=== PATIENT | female | born 1995 | race Caucasian/White ===

== ENCOUNTER 2019-09-29 20:35 | Outpatient (REF) | payer OTHER, SELFPAY | END 2019-09-29 20:55 | LOC: LBN 20:35 | PROVIDERS: Visit Provider Obstetrics & Gynecology | DX: R30.0 Dysuria (principal) | CPT/HCPCS: 87077; 87086; 87186 ==

== ENCOUNTER 2022-12-02 16:31 | Outpatient (REF) | payer OTHER, SELFPAY ==
--- NOTE | 2022-12-02 15:30 | PAPFT_PTH ---
PATIENT: Jess Negron LOC: [facility] U#:[id number] AGE/SX: 27/F ROOM: RE12/02/[address]: Carol Rueda : 1995 BED: DIS: 12/02/2022 SPEC #: [id number] RECD: 12/02/22 17:32 STATUS: ESAU REAmber #: [id number] CÉSAR: 12/02/22 15:[address]: Carol Rueda DEPT: [facility] Cytology RECD BY: Sita Koch ENTERED: 12/02/22 17:32 SP TYPE: PAPFT OTHR DR: Nadya Villalpando Tissues: 1 - CX/ENDOCX FOR PAP SMEARS Procedures: PAP THIN PREP/UVM Screening HPV DNA PROBE Comments: [id number]
== END 2022-12-02 16:32 | disposition home or self-care (01) ==
LOC: LBN 16:31
PROVIDERS: Visit Provider Obstetrics & Gynecology Gynecology
DX: Z12.4 Encounter for screening for malignant neoplasm of cervix (principal); Z11.51 Encounter for screening for human papillomavirus (HPV); R87.610 Atypical squamous cells of undetermined significance on cytologic smear of cervix (ASC-US)
CPT/HCPCS: 88142; 87624

== ENCOUNTER 2023-04-14 10:21 | Emergency (ER) | payer SELFPAY ==
[2023-04-14 10:33] VITALS: BP 124/78; PULSE 74; RESP 16; TEMP 37.2; O2SAT 100
--- NOTE | 2023-04-14 11:40 | ED.GENADUL_ITS ---
Discharge Plan Disposition Patient Disposition: Home Discharge Details Chief Complaint: Nausea/Vomit/Diar Clinical Impression: Diarrhea Primary Care Provider: None,None ED Provider: Pete Tobias Home Meds and New Rx's Prescriptions: No Action No Known Home Meds Discharge Instructions Instructions: Acute Diarrhea (ED) Additional Instructions: Please be sure to maintain adequate hydration. Any volume of fluid lost in bowel movements need to be replaced orally with electrolyte balance solution as discussed. Please contact your primary care physician to arrange follow-up. Return to the ER immediately for any worsening or new concerning symptoms. Referrals: Carol Rueda MD [ [facility] STAFF PHYSICIAN] - Medical Decision Making 27-year-old female here with loose stool over the past 4 days. Multiple family members/friends sick with similar GI symptoms. Abdominal exam is benign. Patient tolerating oral intake. She seems to be maintaining adequate hydration despite fluid losses. I recommended continued oral rehydration. I will send fecal pathogens and C. difficile studies. HPI General Mode of arrival: ambulatory . Date/Time Provider Initiated Documentation: 04/14/23 11:18 . Limitations to Documentation: no limitations . Information obtained by: patient . HPI Narrative: 27-year-old female here with chief complaint of diarrhea. Patient has had loose stool for the past 4 days. Symptoms are persistent. She does note some nausea and vomiting that has since resolved. No abdominal pain. She does have some intermittent bloating sensation. Patient notes multiple family members and friends sick with similar GI symptoms over the past week. Patient has not consumed any undercooked foods or untreated water sources. No recent travel. Patient states she has no nausea at this time and is able to keep fluid down. Related Data Home Medications Medication Instructions Recorded Confirmed Unknown [No Known Home Meds] 12/29/22 04/14/23 Allergies Allergy/AdvReac Type Severity Reaction Status Date / Time No Known Drug Allergies Allergy Unverified 04/14/23 10:38 General Stated Complaint: Nausea/Vomit/Diar LAN: 3 Review of Systems All systems reviewed & are unremarkable except as noted in HPI and below PFSH All Active Problems (Updated 04/14/23 @ 11:44 by Pete Tobias MD) Diarrhea (Acute) Acne (Acute 04/18/14) Dysuria (Acute) Medical History (Updated 04/14/23 @ 11:44 by Pete Tobias MD) Abnormal Pap smear of cervix 01/2011 LSGIL can't exclude HGSIL (15yo) 07/2011 HGSIL 08/2011 CIN1 on colpo bx 11/2012 HGSIL 2/03/12 CIN2 colpo bx 08/2013 HGSIL. 12/2013 colpo bx CIN2. 01/2014 LEEP - CIN2 2014. Pap-normal. 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 Contraception 02/2014 Nexplanon insertion. Was told by provider Nexplanon use forl 4 years is okay. Contraceptive management (03/15/14) 11/2022. Nexplanon removed. Surgical History (Updated 12/02/22 @ 16:44 by Carol Rueda MD) H/O LEEP LEEP. CIN2. 2019. In [place]. Family History Father , Metastatic lung canc Neoplasm Social History (Updated 12/02/22 @ 17:34 by Carol Rueda MD) Smoking/Tobacco Use Status: Current-Occasional Tobacco Type: e-cigarettes Smoking risk assessment performed?: Yes Alcohol Intake: never Drug use: Daily Substance use type: marijuana Household members: other Details: lives alone. Yao will move to [facility] in a year. Housing: other Details: Yao is Nepalese. 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 Sexually active: Yes Do you feel safe in your relationship?: Yes Female Reproductive History Menstrual Age of Menarche: 8 Duration of menses: 3-5 days control method: implanted (Nexplanon - .) History History 0 Para Hx # Term Pregnancies Multiple births Hx # Pregnancies Ectopic pregnancies AB induced Hx Number of Living Children AB spontaneous Exam Const General: cooperative and no acute distress HENMT Head: normocephalic Eyes Conjunctivae: normal conjunctivae Sclera: normal sclerae Resp Auscultation: clear to auscultation bilaterally, no rales, no rhonchi and no wheezes Cardio Rate: regular rate and not tachycardic Rhythm: regular rhythm GI Palpation: soft, not firm, no guarding, no masses, not rigid and nontender Neuro General: patient alert, patient awake and tone normal Psych Appearance: grossly normal Mental Status: mental status grossly normal Speech and Movement: speech and movement normal Course Vital Signs Vital signs: Vital Signs Temperature 37.2 C 04/14/23 10:33 Pulse 74 04/14/23 10:33 Respiratory Rate 16 04/14/23 10:33 Blood Pressure 124/78 04/14/23 10:33 Pulse Oximetry 100 04/14/23 10:33 Temperature 37.2 C 04/14/23 10:33 Temperature Source Oral 04/14/23 10:33 Pulse 74 04/14/23 10:33 Respiratory Rate 16 04/14/23 10:33 Respiratory Effort Normal 04/14/23 10:37 Blood Pressure 124/78 04/14/23 10:33 Blood Pressure Position Sitting 04/14/23 10:33 Pulse Oximetry 100 04/14/23 10:33 Oxygen Delivery Method Room Air 04/14/23 10:33 Oxygen Flow Rate 0 04/14/23 10:33 Pain Level 5 04/14/23 10:33 PAWSS Have you Been Recently Intoxicated or Drunk Within the Last 30 days?: No Have you Ever Experienced Previous Episodes of Alcohol Withdrawal?: No Have you ever Experienced Withdrawal Seizures?: No Have you ever Experienced Delirium Tremens(DT)s?: No Have you ever undergone Alcohol Rehabilitation Treatment (i.e, inpt ot outpatient treatment programs)?: No Have you ever Experienced Blackouts?: No Have you ever Combined Alcohol with other Downers within the last 90 days?: No Have you ever Combined Alcohol with any other Substance of Abuse during the last 90 days?: No Result: 0
[2023-04-14 13:00] LABS: C Diff PCR Negative (Negative)
[2023-04-15 13:10] LABS: Campylobacter PCR Negative (Negative); Salmonella PCR Negative (Negative); Shiga Toxin PCR Negative (Negative); Shigella/Enteroinvasive Ecoli Negative (Negative)
--- NOTE | 2023-04-16 18:11 | NUR.NOTE ---
Nursing Note: PT CALLED FOR TEST RESULTS. IN CHART TO LOOK UP. KEENA OK'D RELAY OF NEGATIVE RESULTS OF STOOL SAMPLE.
== END 2023-04-14 12:00 | disposition home or self-care (01) ==
PROVIDERS: Emergency Provider Student in an Organized Health Care Education/Training Program
DX: R19.7 Diarrhea, unspecified (principal); R11.2 Nausea with vomiting, unspecified
CPT/HCPCS: 87493; 87505; 99283

== ENCOUNTER 2023-05-08 12:36 | Outpatient (REF) | payer SELFPAY ==
[2023-05-10 12:59] LABS: Chlamydia Result Negative (Negative); GC Result Negative (Negative)
== END 2023-05-08 12:37 | disposition home or self-care (01) ==
LOC: LBN 12:36
PROVIDERS: Visit Provider Advanced Practice Midwife
DX: R30.0 Dysuria; Z72.51 High risk heterosexual behavior; Z11.3 Encounter for screening for infections with a predominantly sexual mode of transmission
CPT/HCPCS: 87491; 87591; 87086

== ENCOUNTER 2023-06-06 09:31 | Emergency (ER) | payer SELFPAY ==
[2023-06-06 09:47] VITALS: BP 110/67; PULSE 58; RESP 16; TEMP 37.1; O2SAT 100
--- NOTE | 2023-06-06 10:08 | ED.GENADUL_ITS ---
Discharge Plan Disposition Patient Disposition: Home Discharge Details Clinical Impression: Exudative pharyngitis, Vaginal candidosis Primary Care Provider: None,None ED Provider: Melissa Holder Home Meds and New Rx's Prescriptions: New fluconazole [Diflucan] 150 mg tablet 150 mg PO ONCE Qty: 1 0RF Rx Instructions: as a single dose, in 1 week if symptoms continue penicillin V potassium 500 mg tablet 500 mg PO TID Qty: 30 0RF Rx Instructions: Take if your throat culture is positive. Discharge Instructions Instructions: Pharyngitis (ED), Yeast Infection (ED) Additional Instructions: Call Dr. Rueda on Thursday the for the results of the throat culture and for a follow-up appointment and recheck. If your throat culture is positive fill the prescription for penicillin and take for the full 10 days. We recommend that you buy a probiotic to take while on antibiotics. If your throat culture is negative and your symptoms continue I recommend that you get a test for mononucleosis from Dr. Rueda. If those symptoms of vaginal yeast infection continue repeat the Diflucan 1 week from today. Return to the emergency department for any new or worrisome symptoms such as difficulty breathing, talking or swallowing or any new or worrisome symptoms. Discharge Data Discharge Date/Time-TO BE ENTERED AT DEPARTURE: 06/06/23 11:33 Discharge Physician: Melissa Holder Medical Decision Making This is a 27-year-old female who was treated with ciprofloxacin for a UTI and developed vaginal candidiasis which she treated with an [id number] Monistat. She states that she used 1 day treatment and the symptoms have returned. Today she presents with a sore throat and has tonsillar exudates but I cannot appreciate any white plaques on the tongue or buccal mucosa. Her airway is patent and she has normal phonation. The patient's rapid strep is negative. I have sent a 48-hour strep. The patient's primary care provider is Dr. Rueda from [facility]. My plan is to prescribe penicillin 500 3 times daily for 10 days the patient will await the results of the regular throat culture and will not take the penicillin if it is negative. I have recommended that the patient get a Monospot test if her symptoms continue and her throat culture is negative. I have explained that a Monospot usually takes several weeks to turn positive and I would not recommend obtaining that test unless the symptoms continue in association with a negative throat culture. I will write for Diflucan here and a repeat Diflucan in 1 week which should treat her vaginal candidiasis and if this is atypical thrush it would treat that as well. Lab Data Lab results reviewed: Yes I reviewed the patient's lab results. Lab results narrative: Rapid strep negative HPI General Date/Time Provider Initiated Documentation: 06/06/23 10:08 . HPI Narrative: Patient is a 27-year-old female recently treated with an antibiotic that she believes was ciprofloxacin for UTI. She was seen and treated in [place], and she developed a yeast infection which was treated with [id number] antifungals. Today she woke up with a sore throat. She denies any sick contacts. She has no history of strep. She denies any difficulty breathing talking or swallowing. She denies any change in her voice. She denies any aggravating or alleviating factors. Related Data Home Medications Medication Instructions Recorded Confirmed fluconazole 150 mg tablet 150 mg PO ONCE #1 tab 06/06/23 (Diflucan) penicillin V potassium 500 mg 500 mg PO TID #30 tabs 06/06/23 tablet Previous Rx's Medication Instructions Recorded fluconazole 150 mg tablet 150 mg PO ONCE #1 tab 06/06/23 (Diflucan) penicillin V potassium 500 mg 500 mg PO TID #30 tabs 06/06/23 tablet Allergies Allergy/AdvReac Type Severity Reaction Status Date / Time propylene glycol Allergy Intermediate Hives Verified 06/06/23 09:51 General Stated Complaint: Sorethroat LAN: 4 Review of Systems Narrative: see hpi Constitutional Constitutional: Denies fever(s), Denies headache(s) and Denies lethargy ENT Ears, Nose, Mouth, and Throat: Denies dysphagia, Denies otalgia, Denies headache(s) and Denies lip swelling Cardiovascular Cardiovascular: Denies dyspnea Respiratory Respiratory: Denies cough and Denies dyspnea Gastrointestinal Gastrointestinal: Denies dysphagia Neurologic Neurologic: Denies headache(s) Allergic/Immunologic Allergic/Immunologic: Denies lip swelling PFSH All Active Problems (Updated 06/06/23 @ 11:14 by Melissa Holder MD) Exudative pharyngitis (Acute) Vaginal candidosis (Acute) Unprotected sexual intercourse (Acute) Acne (Acute 04/18/14) Dysuria (Acute) Medical History Abnormal Pap smear of cervix 01/2011 LSGIL can't exclude HGSIL (15yo) 07/2011 HGSIL 08/2011 CIN1 on colpo bx 11/2012 HGSIL /03/12 CIN2 colpo bx 08/2013 HGSIL. 12/2013 colpo bx CIN2. 01/2014 LEEP - CIN2 2014. Pap-normal. 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 Contraception 02/2014 Nexplanon insertion. Was told by provider Nexplanon use forl 4 years is okay. Contraceptive management (03/15/14) 11/2022. Nexplanon removed. Surgical History H/O LEEP LEEP. CIN2. 2019. In [place]. Family History Father , Metastatic lung canc Neoplasm Social History Smoking/Tobacco Use Status: Current-Occasional Tobacco Type: e-cigarettes Smoking risk assessment performed?: Yes Alcohol Intake: current Alcohol Intake frequency: holidays/special occasions only Drug use: Daily Substance use type: marijuana Household members: other Details: lives alone. Fiance will move to [facility] in a year. 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 Sexually active: Yes Do you feel safe at home: Yes Do you feel safe in your relationship?: Yes Female Reproductive History Menstrual Age of Menarche: 8 Duration of menses: 3-5 days control method: implanted (Nexplanon - .) History History 0 Para Hx # Term Pregnancies Multiple births Hx # Pregnancies Ectopic pregnancies AB induced Hx Number of Living Children AB spontaneous Exam Const General: cooperative, healthy appearing, comfortable, no acute distress, well developed, well groomed and well hydrated Nutritional Appearance: average body habitus and well nourished Orientation: alert, awake and oriented x3 [facility] Head: normal to inspection, normocephalic and atraumatic Ears: hearing grossly normal bilaterally and external ears normal General nose exam: external nose normal and no nasal discharge Face and sinus: normal facial exam Mouth: moist mucous membranes and other (Normal phonation) Throat: uvula midline, posterior oropharynx abnormal exudates, uvula not displaced and other (There are bilateral symmetric tonsillar exudates. No buccal cellulitis) Other: Airway is patent Eyes General: appearance normal, both eyes and all related structures Pupils: PERRL EOM: EOM intact bilaterally Neck Neck: normal visual inspection, full ROM, no lymphadenopathy, no meningeal signs, trachea midline and other Chest Chest: normal inspection of the chest Resp Effort & Inspection: normal respiratory effort and able to speak in complete sentences Auscultation: clear to auscultation bilaterally and abnormal I/E ratio Cardio Rate: regular rate Rhythm: regular rhythm Heart Sounds: S1 normal and S2 normal GI Inspection: normal to inspection and non-distended Palpation: soft and nontender Back/Spine/Pelvis Back: no CVA tenderness Cervical Spine: normal cervical lordosis Thoracic/Lumbar Spine: thoracic and lumbar spine normal to inspection Skin General skin exam: no rashes or lesions noted, turgor normal, no petechiae and no purpura Rashes: no rashes Trauma: no lacerations or abrasions Neuro General: patient alert, patient awake, patient oriented x3, no meningeal signs, no focal motor deficits and CN's II-XI intact bilaterally Cranial Nerves: CN's II-XI intact bilaterally Cognition: normal cognition Speech: speech normal Gait: normal gait Motor: muscle tone normal throughout Sensory Exam: no sensory deficits noted Extrem General: normal to inspection, full ROM, capillary refill normal and normal exam except as noted Psych Appearance: grossly normal Affect: normal affect Attitude: cooperative Insight: insight good Judgment: judgment good Other: The patient appears to have capacity make medical decisions. Course Vital Signs Vital signs: Vital Signs Temperature 37.1 C 06/06/23 09:47 Pulse 58 L 06/06/23 09:47 Respiratory Rate 16 06/06/23 09:47 Blood Pressure 110/67 06/06/23 09:47 Pulse Oximetry 100 06/06/23 09:47 Temperature 37.1 C 06/06/23 09:47 Temperature Source Temporal Artery Scan 06/06/23 09:47 Pulse 58 L 06/06/23 09:47 Respiratory Rate 16 06/06/23 09:47 Respiratory Effort Normal, Non-Labored 06/06/23 09:52 Blood Pressure 110/67 06/06/23 09:47 Blood Pressure Position Supine 06/06/23 09:47 Pulse Oximetry 100 06/06/23 09:47 Oxygen Delivery Method Room Air 06/06/23 09:47 Oxygen Flow Rate 0 06/06/23 09:47
[2023-06-06] MEDS: Fluconazole 150 MG TAB PO (11:04)
--- NOTE | 2023-06-06 11:14 | NUR.NOTE ---
Nursing Note: Referral given to Care Management for needs PCP, f/u ED of strep culture, will need monospot if strep neg. To be seen June 09 or ThuJune 10.
[2023-06-06 11:31] VITALS: BP 101/73; PULSE 51; RESP 16; O2SAT 100
--- NOTE | 2023-06-09 09:30 | NUR.NOTE ---
Nursing Note: Patient called asking for strep culture results, negative given to pt.
--- NOTE | 2023-06-09 10:45 | CMACTNOTE_ITS ---
Date of service: 06/09/23 Time of Service: 10:45 Care Management Activity Note Activity Note Text Activity Note Text: Jess is seen in the ED for pharyngitis. At the request of ED provider, CM coordinates a referral to Kristen Guillen MD, of [facility], to assist Jess in obtaining a follow up appointment and with establishing care with a PCP.
== END 2023-06-06 11:33 | disposition home or self-care (01) ==
PROVIDERS: Emergency Provider Emergency Medicine Emergency Medical Services
DX: J02.9 Acute pharyngitis, unspecified (principal); B37.31 Acute candidiasis of vulva and vagina; F17.290 Nicotine dependence, other tobacco product, uncomplicated
CPT/HCPCS: 87880; 99283; 87081

== ENCOUNTER 2023-10-12 13:17 | Outpatient (REF) | payer SELFPAY ==
[2023-10-13 14:12] LABS: Chlamydia Result Negative (Negative); GC Result Negative (Negative)
== END 2023-10-12 13:18 | disposition home or self-care (01) ==
LOC: LBN 13:17
PROVIDERS: PCP Advanced Practice Midwife; Visit Provider Advanced Practice Midwife
DX: Z72.51 High risk heterosexual behavior (principal); B96.89 Other specified bacterial agents as the cause of diseases classified elsewhere; N76.0 Acute vaginitis; R30.0 Dysuria
CPT/HCPCS: 87077; 87491; 87591; 87086; 87186; 87480; 87510; 87660

== ENCOUNTER 2024-12-16 22:24 | Outpatient (REF) | payer SELFPAY ==
[2024-12-19 11:16] LABS: Chlamydia Result Negative (Negative); GC Result Negative (Negative)
== END 2024-12-16 22:25 | disposition home or self-care (01) ==
LOC: LBN 22:24
PROVIDERS: PCP Advanced Practice Midwife; Visit Provider Obstetrics & Gynecology Gynecology
DX: Z32.01 Encounter for pregnancy test, result positive (principal); Z11.3 Encounter for screening for infections with a predominantly sexual mode of transmission; N89.8 Other specified noninflammatory disorders of vagina; N92.6 Irregular menstruation, unspecified
CPT/HCPCS: 87491; 87591; 87480; 87510; 87660

== ENCOUNTER 2025-09-26 10:58 | Outpatient (REF) | payer SELFPAY ==
[2025-09-27 12:07] LABS: Chlamydia Result Negative (Negative); GC Result Negative (Negative)
== END 2025-09-26 10:59 | disposition home or self-care (01) ==
LOC: LBN 10:58
PROVIDERS: PCP Advanced Practice Midwife; Visit Provider Obstetrics & Gynecology
DX: N89.8 Other specified noninflammatory disorders of vagina (principal)
CPT/HCPCS: 87491; 87591; 87480; 87510; 87660